=== PATIENT | male | born 1995 | race Caucasian/White ===

== ENCOUNTER 2017-10-13 20:52 | Emergency (ER) | payer MEDICAID ==
[2017-10-13] MEDS ORDERED: Acetaminophen/HYDROcodone 325-5 MG Tab PO ONE (21:18)
[2017-10-13] MEDS ORDERED: Oseltamivir 75 MG Cap PO ONE (22:00)
[2017-10-13 22:24] VITALS: BP 137/83
--- NOTE | 2017-10-14 12:45 | ER ---
DATE SEEN: 10/13/2017 TIME SEEN: The patient was seen at 2150 hours. HISTORY OF PRESENT ILLNESS: This 22-year-old comes in with history of 2 days cough and chills, cold, myalgia. Denies diarrhea, vomiting, or abdominal discomfort. He smokes 2 to 3 cigarettes per day. PAST MEDICAL HISTORY: Significant for chondromalacia. ALLERGIES: Multiple allergies - Amoxicillin, Biaxin, codeine, morphine, potassium, and Compazine. REVIEW OF SYSTEMS: Negative except as noted above. PHYSICAL EXAMINATION: VITAL SIGNS: Blood pressure 157/84, retaken again was 137/83, heart rate initially 115 and 93 on dismissal, 37.7 degrees centigrade, 18 respirations, 98% oxygen saturation. Weight 142.8 kg, 39.4 kg/m2 BMI. GENERAL: Alert man who looks sick. He has his coat on and he has hat on. HEENT: PERRLA intact. Pharynx minimal erythema. Moderate cervical adenopathy. TMs negative. LUNGS: Clear without rales, rhonchi, or wheezes. HEART: S1, S2. No murmur. ABDOMEN: Soft. No guarding. No abdominal discomfort. EXTREMITIES: Without abnormality. No rash. Positive test for influenza A. The patient placed on Tamiflu 75 mg b.i.d. for 5 days. This was dispensed. For his myalgias and muscle aches, Tylenol and ibuprofen. Follow up with doctor in 24 to 72 hours if markedly worse, otherwise as needed in the next 7 to 14 days. /[id number] GIULIANA/TIMOTHY
== END 2017-10-13 22:25 | disposition home or self-care (01) ==
LOC: FB.ED 20:52
DX: J10.1 Influenza due to other identified influenza virus with other respiratory manifestations (principal); F17.210 Nicotine dependence, cigarettes, uncomplicated; Z88.1 Allergy status to other antibiotic agents; Z88.5 Allergy status to narcotic agent; Z88.8 Allergy status to other drugs, medicaments and biological substances
CPT/HCPCS: 87081; 87430; 87804; 99284; A9270